=== PATIENT | female | born 1970 | race African-American/Black ===

== ENCOUNTER 2023-05-09 01:21 | Emergency (ER) | payer SELFPAY ==
[~2023-05-09] VITALS: Ht 165.1 cm; Wt 81.8 kg
[2023-05-09 02:00] VITALS: O2SAT 99
[2023-05-09 02:09] LABS: Mean Corpuscular Hgb Conc. 27.7 g/dL (32.0-36.0)
[2023-05-09 02:11] LABS: Hematocrit 28.8 % (36.0-46.0); Mean Corpuscular Hemoglobin 14.5 pg (28.0-32.0); Mean Corpuscular Volume 52.3 fL (80.0-100.0); White Blood Cell 8.9 10^3/uL (4.4-10.8)
[2023-05-09 02:12] LABS: Red Cell Distribution Width 24.5 % (11.8-14.3)
[2023-05-09 02:13] LABS: Band Neutrophils % (manual) 0; Basophils % (manual) 0 (0.0-2.0); Blast Cells 0; Metamyelocytes % 0; Myelocytes % 0; Promyelocytes % 0; Reactive Lymphocytes 0
[2023-05-09 03:13] LABS: Eosinophils % (manual) 3 (0-7); Lymphocytes % (manual) 33 (10.0-50.0); Monocytes % (manual) 5 (0-12)
[2023-05-09 03:15] LABS: Anisocytosis Moderate; Hypochromia Marked; Platelet Estimate Adequate
[2023-05-09 03:30] LABS: Alanine Aminotransferase 13 U/L (7-40); Albumin 4.4 g/dL (3.2-4.8); Alkaline Phosphatase 59 U/L (46-116); Anion Gap 7 (5-15); Aspartate Aminotransferase 12 U/L (13-40); BUN/Creatinine Ratio 20.8 (10.0-20.0); Blood Urea Nitrogen 15 mg/dL (9-23); Calcium 9.3 mg/dL (8.7-10.4); Carbon Dioxide 25 mmol/L (20-30); Chloride 108 mmol/L (98-107); Glucose 100 mg/dL (74-106); Potassium 3.7 mmol/L (3.5-5.1); Sodium 140 mmol/L (136-145)
[2023-05-09 03:31] LABS: Bilirubin, Total 0.3 mg/dL (0.2-1.0); Total Protein 7.8 g/dL (5.7-8.2)
[2023-05-09 04:13] LABS: Urine Bacteria FEW /hpf (None Seen); Urine Blood 2+ /uL (Negative); Urine Clarity Clear (Clear); Urine Color Colorless (Yellow); Urine Protein, UAD 2+ (Negative); Urine Specific Gravity 1.012 (1.001-1.035); Urine Urobilinogen Normal (Negative); Urine WBC 4 /hpf (0 - 5)
[2023-05-09 04:21] LABS: Amphetamine Screen, Urine Neg (NEGATIVE); Barbiturate Scree,Urine Neg (NEGATIVE); Benzodiazephine Screen, Urine Neg (NEGATIVE); Cocaine Screen, Urine Neg (NEGATIVE); Opiate Scree,Urine Neg (NEGATIVE)
[2023-05-09 04:22] LABS: Cannabinoid Screen, Urine Pos (NEGATIVE); Phencyclidine Screen, Urine Neg (NEGATIVE)
[2023-05-09 05:45] VITALS: BP 124/71; PULSE 74; RESP 13; O2SAT 99
== END 2023-05-09 05:47 | disposition home or self-care (01) ==
LOC: ER 01:21
DX: G93.41 Metabolic encephalopathy (principal); D64.9 Anemia, unspecified; I10 Essential (primary) hypertension; Z88.8 Allergy status to other drugs, medicaments and biological substances; Z79.899 Other long term (current) drug therapy
CPT/HCPCS: 36415; 70450; 71045; 74176; 80053; 80307; 80320; 81001; 82140; 82962; 85007; 85027